=== PATIENT | female | born 1955 | race Caucasian/White ===

== ENCOUNTER → 2023-11-07 06:42 | Outpatient (REF) | payer MEDICARE, OTHER, SELFPAY | LOC: WDC 06:42 | PROVIDERS: ATTENDING PHYSICIAN Physician Assistant Medical | DX: Z12.31 Encounter for screening mammogram for malignant neoplasm of breast (principal) | CPT/HCPCS: 77063; 77067 ==

== ENCOUNTER → 2024-12-11 07:58 | Outpatient (REF) | payer MEDICARE, OTHER, SELFPAY | LOC: WDC 07:58 | PROVIDERS: ATTENDING PHYSICIAN Physician Assistant Medical | DX: Z12.31 Encounter for screening mammogram for malignant neoplasm of breast (principal) | CPT/HCPCS: 77063; 77067 ==